=== PATIENT | male | born 1965 | race Caucasian/White ===

== ENCOUNTER → 2021-11-09 | Outpatient (CLI) | payer BC ==
--- NOTE | 2021-11-10 14:41 | CA ---
Transthoracic Echo Report Name: Wily Edwards Age: 56 Gender: M : 1965 Exam Date: 11/09/2021 09:17 Exam Location: [facility] Ht (in): 61 Wt (lb): 188 Ordering Physician: Chance Mendoza MD Attending/Referring Phys: Chance Mendoza MD Antenna Machine Operator Patito Stone RDCS Procedure CPT: Indications: Z01.818 ENCOUNTER FOR OTHER PREPRO Cardiac Hx: Technical Quality: Fair Contrast 1: Total Dose (mL): Contrast 2: Total Dose (mL): MEASUREMENTS (Male / Female) Normal Values 2D ECHO LV Diastolic Diameter PLAX 4.5 cm 4.2 - 5.9 / 3.9 - 5.3 cm LV Systolic Diameter PLAX 3.2 cm IVS Diastolic Thickness 1.3 cm 0.6 - 1.0 / 0.6 - 0.9 cm LVPW Diastolic Thickness 1.2 cm 0.6 - 1.0 / 0.6 - 0.9 cm LV Relative Wall Thickness 0.6 RV Internal Dim ED PLAX 3.2 cm LA Volume 45.2 cm??? 18 - 58 / 22 - 52 cm??? M-MODE Aortic Root Diameter MM 3.9 cm LA Systolic Diameter MM 3.8 cm LA Ao Ratio MM 1.0 AV Cusp Separation MM 2.4 cm DOPPLER AV Peak Velocity 105.8 cm/s AV Peak Gradient 4.5 mmHg LVOT Peak Velocity 101.8 cm/s LVOT Peak Gradient 4.1 mmHg MV Area PHT 3.3 cm??? Mitral E Point Velocity 63.2 cm/s Mitral A Point Velocity 52.4 cm/s Mitral E to A Ratio 1.2 MV Deceleration Time 233.0 ms MV E' Velocity 9.1 cm/s Mitral E to MV E' Ratio 6.9 FINDINGS Left Ventricle Mildly increased left ventricular wall thickness. No obvious regional wall motion abnormalities. Left ventricular ejection fraction is estimated at 50-55 %. Normal left ventricular diastolic filling pattern. Right Ventricle Normal right ventricular size and function. Right ventricular systolic pressure within normal limits. Right Atrium Normal right atrial size. Left Atrium Normal left atrial size. No evidence for an atrial septal defect. Mitral Valve Structurally normal mitral valve. No mitral stenosis, regurgitation or prolapse. Aortic Valve Trileaflet aortic valve. No aortic valve stenosis or regurgitation. Tricuspid Valve Structurally normal tricuspid valve. Trace tricuspid regurgitation. Pulmonic Valve Structurally normal pulmonic valve. Trace pulmonic regurgitation. Pericardium No pericardial effusion. Aorta Normal size aortic root and proximal ascending aorta. CONCLUSIONS Normal LV systolic function Previewed by: Dr. Aung Kohli MD (Electronically Signed) Final Date: 10 November 2021 14:40
== END | disposition home or self-care (01) ==
LOC: RADECHMAIN 08:43
PROVIDERS: ATTEND Internal Medicine Hematology & Oncology
DX: Z01.818 Encounter for other preprocedural examination (principal); I07.1 Rheumatic tricuspid insufficiency
CPT/HCPCS: 93306

== ENCOUNTER → 2022-04-02 | Outpatient (CLI) | payer BC ==
[2022-04-02 14:09] LABS: African American GFR (CKD) >90 (>60 ml/min/1.73 sqM); Blood Urea Nitrogen 12 mg/dL (9-20); Non-African American GFR(CKD) 89 (>60 ml/min/1.73 sqM)
--- NOTE | 2022-04-02 15:29 | CT ---
EXAMINATION TYPE: CT ChestAbdPelvis w con CT DLP: 1167.8 mGycm, Automated exposure control for dose reduction was used. 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 Two-dimensional cor onal and sagittal reconstructions were obtained. Contrast used:100ml mL of Isovue 300 with IV Contrast, Oral contrast used: with Oral Contrast Findings: CHEST: LUNGS/ PLEURA: The lung parenchyma appears unremarkable. AIRWAY: Patent and unremarkable. HEART: Size within normal limits. MEDIASTINUM: No gross evidence of adenopathy. VASCULATURE: No aortic aneurysm. MUSCULOSKELETAL: No acute osseous abnormalities. SOFT TISSUES/LYMPH NODES: Unremarkable. LOWER NECK: No significant findings. ABDOMEN: ABDOMEN LIVER: Scattered hypoattenuating lesions are seen throughout the liver the largest of which appear as simple cysts.e 4.6 cm. GALLBLADDER AND BILE DUCTS: Unremarkable. PANCREAS: Unremarkable. SPLEEN: Small splenule present. ADRENAL GLANDS: Unremarkable. KIDNEYS AND URETERS: No evidence of hydronephrosis or renal calculus. The ureters are unremarkable. PELVIS BLADDER: Markedly distended measuring up to 11.0 x 13.2 x 13.2 cm. Right posterior bladder diverticul um present. REPRODUCTIVE: Unremarkable. ABDOMEN & PELVIS STOMACH AND BOWEL: No evidence of bowel obstruction. Suspected postsurgical changes of the duodenum. PERITONEUM: No evidence of pneumoperitoneum or free fluid. VASCULATURE: No evidence of aortic aneurysm. MUSCULOSKELETAL: No acute osseous abnormalities LYMPH NODES: No gross evidence for lymphadenopathy. SOFT TISSUE/ABDOMINAL WALL: fat-containing umbilical hernia. IMPRESSION: No evidence of gastrointestinal tumor or evidence for lymphadenopathy to suggest metastatic disease.
== END | disposition home or self-care (01) ==
LOC: RADCTMAIN 12:26
PROVIDERS: ATTEND Internal Medicine Hematology & Oncology
DX: D48.1 Neoplasm of uncertain behavior of connective and other soft tissue (principal); D50.9 Iron deficiency anemia, unspecified
CPT/HCPCS: 82565; 84520; 71260; 74177; 36415; Q9967

== ENCOUNTER → 2022-10-10 | Outpatient (CLI) | payer BC ==
[2022-10-10 13:29] LABS: African American GFR (CKD) >90 (>60 ml/min/1.73 sqM); Blood Urea Nitrogen 13 mg/dL (9-20); Non-African American GFR(CKD) >90 (>60 ml/min/1.73 sqM)
--- NOTE | 2022-10-10 15:17 | CT ---
EXAMINATION TYPE: CT ChestAbdPelvis w con DATE OF EXAM: 10/10/2022 INDICATION: gi tumor follow up COMPARISON: 04/02/2022 CT DLP: 1103.7 mGycm CONTRAST: Performed with Oral Contrast and with IV Contrast, patient injected with 100 mL of Isovue 300. TECHNIQUE: Axial images at 5 mm thick sections. Reconstructed images in the coronal plane. Delayed images through the kidneys. FINDINGS: CT CHEST: Portion of the thyroid visualized is normal. No suspicious lung nodules or focal infiltrates are present. No enlarged mediastinal or hilar adenopathy is evident. The ascending aorta diameter at the level of the main pulmonary artery is 3.5 cm. The main pulmonary artery diameter at the bifurcation is 2.[address] ABDOMEN: Liver: Multiple cystlike areas are within the liver. The largest measures 3.6 cm in the inferior righ t lobe. Spleen: Normal Pancreas: Normal Adrenal glands: The adrenal glands are normal. Gallbladder: Cholelithiasis. Kidneys: No masses are evident. No hydronephrosis is present. No cysts are present. Delayed images were obtained through the kidneys, which remain unremarkable. Aorta: Normal Inferior vena cava: Normal. CT PELVIS: Loops of bowel within the abdomen and pelvis are normal. There are loops of bowel which are incom pletely distended or lack oral contrast limiting their evaluation. Appendix: Normal as visualized. Couple of nonenlarged lymph nodes may be in the mesentery right lower quadrant. Urinary bladder: Urinary bladder diverticulum is in the superior posterior right region. No ureteral dilatation is evident. Genitourinary structures: Prostate is somewhat prominent. Osseous structures: No suspicious lytic or sclerotic lesions. IMPRESSIONS: 1. Cholelithiasis. 2. Multiple cystlike areas within the liver. 3. Urinary bladder diverticulum. 4. No suspicious changes for recurrent or metastatic neoplasm
== END | disposition home or self-care (01) ==
LOC: RADCTMAIN 12:56
PROVIDERS: ATTEND Internal Medicine Hematology & Oncology
DX: D48.1 Neoplasm of uncertain behavior of connective and other soft tissue (principal); K80.20 Calculus of gallbladder without cholecystitis without obstruction; D50.9 Iron deficiency anemia, unspecified; N32.3 Diverticulum of bladder; K76.89 Other specified diseases of liver; Z71.3 Dietary counseling and surveillance
CPT/HCPCS: 82565; 84520; 71260; 74177; 36415; Q9967

== ENCOUNTER → 2023-05-22 | Outpatient (CLI) | payer BC ==
[2023-05-22 14:18] LABS: African American GFR (CKD) >90 (>60 ml/min/1.73 sqM); Blood Urea Nitrogen 14 mg/dL (9-20); Non-African American GFR(CKD) 86 (>60 ml/min/1.73 sqM)
--- NOTE | 2023-05-22 15:33 | CT ---
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 CONTRAST: CT scan of the chest, abdomen and pelvis is performed with Oral Contrast and with IV Contrast, patien t injected with 100 mL of Isovue 300. FINDINGS: CT chest: There are 2 small groundglass densities in the subpleural parenchymal lung of the left lower lobe oth erwise the lung parenchyma is clear. There is no solid pulmonary nodule or mass. There is no airspace consolidation. There is no pleural effusion or pneumothorax. The great vessels chest are normal and there is no mediastinal, hilar or axillary adenopathy. No focal osseous lesions are seen. CT abdomen and pelvis: Multiple stable well-circumscribed hypodensities within the liver consistent with simple cysts. There are gallstones but no gallbladder distention, wall thickening, pericholecystic fluid or biliary ductal dilatation. There is no focal mass or organomegaly involving pancreas, spleen or adrenal glands. The duodenum is patulous likely postsurgical change. It is stable compared to prior studies. There is no bowel obstruction or inflammation. There is no free intraperitoneal air or fluid. There is no solid renal mass or hydronephrosis. Caliber the abdominal aorta is normal and there is no retroperitoneal adenopathy or hemorrhage. There is no pelvic mass, free fluid, abscess or adenopathy. No focal osseous lesions are seen. IMPRESSION: 1. Stable chest abdomen and pelvis without evidence of recurrent or metastatic disease. 2. Cholelithiasis
== END | disposition home or self-care (01) ==
LOC: RADCTMAIN 12:52
PROVIDERS: ATTEND Internal Medicine Hematology & Oncology
DX: K80.20 Calculus of gallbladder without cholecystitis without obstruction (principal); C49.A0 Gastrointestinal stromal tumor, unspecified site; D50.9 Iron deficiency anemia, unspecified; Z71.3 Dietary counseling and surveillance
CPT/HCPCS: 82565; 84520; 71260; 74177; 36415; Q9967